=== PATIENT | male | born 1980 | race Caucasian/White ===

== ENCOUNTER 2024-09-05 23:09 | Emergency (ER) | payer OTHER | END 2024-09-06 00:20 | disposition home or self-care (01) | LOC: JD.ED 23:09 | DX: S82.832A Other fracture of upper and lower end of left fibula, initial encounter for closed fracture (principal); V86.15XA Passenger of 3- or 4- wheeled all-terrain vehicle (ATV) injured in traffic accident, initial encounter; Y93.89 Activity, other specified | CPT/HCPCS: 73590-26-LT; 73590-LT; 99283 ==